=== PATIENT | male | born 1990 | race Two or more races ===

== ENCOUNTER 2024-01-27 14:01 | Emergency (ER) | payer BC ==
[~2024-01-27] VITALS: Ht 175.3 cm; Wt 88.5 kg
[2024-01-27 15:02] LABS: HEMATOCRIT 38.9 % (39.0-48.0); HEMOGLOBIN 13.4 g/dL (13-16.00); MEAN CELL VOLUME 85.3 fL (80.0-100.00); MEAN CORPUSCULAR HEMOGLOBIN 29.5 pg (27.00-32.0); MEAN CORPUSCULAR HGB CONC 34.6 g/dl (32.0-36.0); PLATELET COUNT 225 K/uL (150-450); RED BLOOD COUNT 4.55 M/uL (4.00-6.00); RED CELL DISTRIBUTION WIDTH 13.2 % (11.5-14.5)
== END 2024-01-27 16:23 | disposition home or self-care (01) ==
LOC: ER 14:02
PROVIDERS: General Practice
DX: J00 Acute nasopharyngitis [common cold] (principal); Z20.822 Contact with and (suspected) exposure to COVID-19